=== PATIENT | female | born 1995 | race Caucasian/White ===

== ENCOUNTER 2022-02-13 14:06 | Emergency (ER) | payer OTHER ==
[2022-02-13 14:41] LABS: BASOPHILS # (AUTO) 0.1 10^3/uL (0.0-0.1); EOSINOPHILS # (AUTO) 0.3 10^3/uL (0.0-0.7); EOSINOPHILS % (AUTO) 3.7 %; HCT - HEMATOCRIT 39.8 % (37.0-47.0); HGB - HEMOGLOBIN 13.6 g/dL (12.0-16.0); LYMPHOCYTES # (AUTO) 1.7 10^3/uL (1.5-3.5); LYMPHOCYTES % (AUTO) 20.2 %; MEAN CORPUSCULAR HEMOGLOBIN 32.3 pg (27.0-31.0); MEAN CORPUSCULAR HGB CONC 34.2 g/dL (32.0-36.0); MEAN CORPUSCULAR VOLUME 94.5 fL (81.0-99.0); MEAN PLATELET VOLUME 9.7 fL (7.9-10.8); MONOCYTES # (AUTO) 0.4 10^3/uL (0.0-1.0); MONOCYTES % (AUTO) 4.4 %; NEUTROPHILS # (AUTO) 5.9 10^3/uL (1.5-6.6); NEUTROPHILS % (AUTO) 70.5 %; PLT - PLATELET COUNT 278 10^3/uL (130-450); RED BLOOD COUNT 4.21 10^6/uL (4.20-5.40); RED CELL DISTRIBUTION WIDTH 13.3 % (12.0-15.0); WHITE BLOOD COUNT 8.4 x10^3/uL (4.8-10.8)
[2022-02-13 14:43] LABS: BILIRUBIN,URINE NEGATIVE (NEGATIVE); GLUCOSE, URINE (UA) NEGATIVE (NEGATIVE); KETONES,URINE (UA) >=80 mg/dL (NEGATIVE); LEUKOCYTE ESTERASE, URINE NEGATIVE (NEGATIVE); NITRITE,URINE NEGATIVE (NEGATIVE); OCCULT BLOOD,URINE TRACE-LYSE (NEGATIVE); PH,URINE 5.5 PH (5.0-7.5); PROTEIN,URINE NEGATIVE (NEGATIVE); UROBILINOGEN,URINE 0.2 (NORMAL) E.U./dL (NORMAL)
[2022-02-13 14:45] LABS: CLARITY,URINE CLEAR (CLEAR)
[2022-02-13] MEDS ORDERED: SODIUM CHLORIDE 0.9% 1,000 ML IV STA (14:50)
[2022-02-13] MEDS ORDERED: ONDANSETRON 4 MG/2 ML VIAL IVP STA (14:50)
[2022-02-13] MEDS ORDERED: PANTOPRAZOLE 40 MG VIAL IVP STA (14:51)
--- NOTE | 2022-02-13 14:57 | ED Physician Documentation ---
History of Present Illness - Stated complaint Stated Complaint: CHILLS/FEVER/VOMITING - Chief complaint Chief Complaint: Abd Pain - Additonal information Additional information: 26-year-old female presents emergency department for evaluation of periumbilical and upper abdominal pain with associated nausea and vomiting. Symptoms began 2 days ago. She reports that initially began after she started taking clindamycin which she was prescribed for infection after a dental procedure. Despite no longer taking the clindamycin she continues to have abdominal pain with nausea and vomiting. Denies possibility of . No fevers. No cough dysuria, urgency or frequency. Review of Systems Constitutional: denies: Fever, Chills, Myalgias Eyes: reports: Reviewed and negative Throat: reports: Reviewed and negative Cardiac: reports: Reviewed and negative Respiratory: reports: Reviewed and negative GI: reports: Abdominal Pain, Nausea, Vomiting. denies: Constipation, Diarrhea : reports: Reviewed and negative Skin: reports: Reviewed and negative Musculoskeletal: reports: Reviewed and negative Neurologic: reports: Reviewed and negative PD PAST MEDICAL HISTORY - Present Medications Home Medications: Ambulatory Orders Medication Instructions Recorded Confirmed Ondansetron Odt [Zofran] 4 mg TL Q6H PRN #10 tablet 02/13/22 - Allergies Allergies/Adverse Reactions: Allergies Allergy/AdvReac Type Severity Reaction Status Date / Time Penicillins Allergy Anaphylaxis Verified 02/13/22 14:25 PD ED PE NORMAL - General General: Alert and oriented X 3, No acute distress, Well developed/nourished - HEENT HEENT: Atraumatic, Moist mucous membranes - Neck Neck: Supple, no meningeal sign, No adenopathy - Cardiac Cardiac: RRR, No murmur, No gallop - Respiratory Respiratory: No respiratory distress, Clear bilaterally - Abdomen Abdomen: Normal bowel sounds, Soft. No: Non tender (Mild epigastric tenderness. Negative Ingram's, negative McBurney's. 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 Eye Opening: Spontaneous Motor: Obeys Commands Verbal: Oriented GCS Score: 15 Results - Vitals Vitals: Vital Signs - 24 hr 03/18/22 14:20 Temperature 36.5 C Heart Rate 78 Respiratory 16 Rate Blood Pressure 128/95 H O2 Saturation 100 Oxygen O2 Source Room air - Labs Labs: Laboratory Tests 02/13/22 02/13/22 02/13/22 14:30 14:30 14:36 WBC 8.4 RBC 4.21 Hgb 13.6 Hct 39.8 MCV 94.5 MCH 32.3 H MCHC 34.2 RDW 13.3 Plt Count 278 MPV 9.7 Neut # (Auto) 5.9 Lymph # (Auto) 1.7 [place] # (Auto) 0.4 Eos # (Auto) 0.3 Baso # (Auto) 0.1 Absolute Nucleated RBC 0.00 Nucleated RBC % 0.0 Sodium Potassium Chloride Carbon Dioxide Anion Gap BUN Creatinine Estimated GFR (MDRD) Glucose Calcium Total Bilirubin AST ALT Alkaline Phosphatase Total Protein Albumin Globulin Albumin/Globulin Ratio Lipase Urine Color YELLOW Urine Clarity CLEAR Urine pH 5.5 Ur Specific [place] 1.020 Urine Protein NEGATIVE Urine Glucose (UA) NEGATIVE Urine Ketones >=80 H Urine Occult Blood TRACE-LYSE Urine Nitrite NEGATIVE Urine Bilirubin NEGATIVE Urine Urobilinogen 0.2 (NORMAL) Ur Leukocyte Esterase NEGATIVE Ur Microscopic Review NOT INDICATED Urine Culture Comments NOT INDICATED Urine HCG, Qual NEGATIVE 02/13/22 14:36 WBC RBC Hgb Hct MCV MCH MCHC RDW Plt Count MPV Neut # (Auto) Lymph # (Auto) [place] # (Auto) Eos # (Auto) Baso # (Auto) Absolute Nucleated RBC Nucleated RBC % Sodium 141 Potassium 3.8 Chloride 99 L Carbon Dioxide 25 Anion Gap 17.0 H BUN 14 Creatinine 0.7 Estimated GFR (MDRD) 100 Glucose 82 Calcium 10.0 Total Bilirubin 0.6 AST 23 ALT 19 Alkaline Phosphatase 62 Total Protein 8.1 Albumin 4.9 Globulin 3.2 Albumin/Globulin Ratio 1.5 Lipase 32 Urine Color Urine Clarity Urine pH Ur Specific [place] Urine Protein Urine Glucose (UA) Urine Ketones Urine Occult Blood Urine Nitrite Urine Bilirubin Urine Urobilinogen Ur Leukocyte Esterase Ur Microscopic Review Urine Culture Comments Urine HCG, Qual PD MEDICAL DECISION MAKING - ED course Complexity details: reviewed results, re-evaluated patient, d/w patient ED course: 26-year-old female presents emergency department for evaluation of a few days uncontrolled nausea and vomiting. Symptoms began after she was prescribed clindamycin following wisdom tooth removal. Despite being unable to keep the clindamycin down she reports the swelling in her mouth has improved, she has reduced pain and no fevers. She did endorse some upper epigastric pain. Screening labs showed no leukocytosis or worrisome electrolyte abnormality. Clinically she had a benign abdominal exam with only mild epigastric tenderness. No guarding, rebound positive Ingram's or positive McBurney's. I discussed with the patient that given a relatively reassuring exam and unremarkable vitals we could attempt symptom control with some IV fluids and Zofran which does seem to allow her to now tolerate clear liquids. We did defer advanced CT imaging. Prescription for Zofran is going to be sent to the pharmacy. However if her symptoms worsen, she develops suddenly severe or different belly pain she will return for repeat evaluation and consideration of advanced imaging. Departure - Departure Disposition: 01 Home, Self Care Clinical Impression: Nausea and vomiting Qualifiers: Vomiting type: unspecified Qualified Code(s): R11.2 - Nausea with vomiting, unspecified Condition: Stable Record reviewed to determine appropriate education?: Yes Prescriptions: Ondansetron Odt [Zofran] 4 mg TL Q6H PRN #10 tablet PRN Reason: Nausea / Vomiting Comments: Marti you were seen today in the emergency department for some upper abdominal pain as well as uncontrolled nausea and vomiting. Your symptoms seem to have begun after starting the clindamycin. Nausea and vomiting can be frequent side effect of the Clindamycin. Today your screening labs are essentially normal. Here in the emergency department we did give you some IV fluids as well as Zofran which seems to be improving the nausea. Because your abdominal pain was minimal and you had normal labs we deferred doing CT imaging. I sent a prescription for Zofran to the [facility] in [place]. I encourage you to take this under the tongue every 6-8 hours. I want you to frequently sip small sips of clear liquids over the next 24 hours and if your symptoms are improve then start eating a diet. It is okay to consider starting the clindamycin again once your vomiting improves or try taking it with food. However if you are not having facial swelling, fevers or worsening dental pain it may be okay to defer continuing the clindamycin. If at any point you find that your symptoms worsen, you develop fevers, have severe or different belly pain then please return immediately to the ER for second evaluation.
[2022-02-13 14:59] LABS: ALBUMIN 4.9 g/dL (3.2-5.5); ALBUMIN/GLOBULIN RATIO 1.5 (1.0-2.2); BILIRUBIN,TOTAL 0.6 mg/dL (0.2-1.0); CREATININE 0.7 mg/dL (0.4-1.0); POTASSIUM 3.8 mmol/L (3.5-5.0); TOTAL PROTEIN 8.1 g/dL (6.7-8.2)
[2022-02-13 15:10] LABS: HCG UR QUAL NEGATIVE
[2022-02-13 16:40] VITALS: BP 120/72
== END 2022-02-13 16:40 | disposition home or self-care (01) ==
LOC: ED 14:06
DX: R10.10 Upper abdominal pain, unspecified (principal); R11.2 Nausea with vomiting, unspecified
CPT/HCPCS: 36415; 80053; 81001; 81003; 81025; 83690; 85025; 87086; 96374; 99282